=== PATIENT | male | born 1970 ===

== ENCOUNTER 2017-06-15 13:53 | Emergency (ER) | payer OTHER ==
[2017-06-15] MEDS ORDERED: Midazolam 1 MG/ML 2 ML SDV ONE ×2 (13:55→13:59)
[2017-06-15] MEDS ORDERED: Midazolam 5 MG/ML SDV IVPUSH ONE (13:55)
[2017-06-15] MEDS ORDERED: Midazolam 1 MG/ML 2 ML SDV IVPUSH ONE ×2 (13:56→14:02)
[2017-06-15] MEDS ORDERED: fentaNYL 100 MCG/2 ML SDV IVPUSH ONE (13:56)
[2017-06-15] MEDS ORDERED: fentaNYL 250 MCG/5 ML SDV ONE (14:00)
[2017-06-15] MEDS ORDERED: Midazolam 5 MG/ML 10 ML MDV ONE (14:00)
[2017-06-15] MEDS ORDERED: Midazolam 50 MG in Sodium Chloride 0.9% 40 ML IV SCH (14:08)
--- NOTE | 2017-06-15 14:13 | EDM.PDOC ---
ED HPI GENERAL MEDICAL PROBLEM - General Stated Complaint: AIR TRANSPORT Time Seen by Provider: 06/15/17 13:55 Source of Information: Reports: EMS History Limitations: Reports: Other - History of Present Illness INITIAL COMMENTS - FREE TEXT/NARRATIVE: History of present illness: []Patient was working on natural [employer] facility alone when apparently a pipe blew and hit him in the head. He was able to walk to his car and call 911 at 11:45. injection operator stated that he was in and out of consciousness. [facility] arrived on scene at 12:15 and was intubated. A motor ambulance was enroute but due to weather stopped here transfer to fixed wing. Patient has received rocuronium, ketamine and is on a fentanyl and Versed drip. Review of systems: As per history of present illness and below otherwise all systems reviewed and negative. Past medical history: As per history of present illness and as reviewed below otherwise noncontributory. Surgical history: As per history of present illness and as reviewed below otherwise noncontributory. Social history: No reported history of drug or alcohol abuse. Family history: As per history of present illness and as reviewed below otherwise noncontributory. Physical exam: General: Well developed, well nourished intubated HEENT: Hematoma right upper eyelid, pupils 3 mm bilaterally reactive, negative for conjunctival pallor or scleral icterus, mucous membranes moist, throat clear , neck supple, nontender, trachea midline. Lungs: Clear to auscultation, breath sounds equal bilaterally, chest nontender. Heart: S1S2, regular, negative for clicks, rubs, or JVD. Abdomen: Soft, nondistended, nontender. Negative for masses or hepatosplenomegaly. Negative for costovertebral tenderness. Pelvis: Stable nontender. Genitourinary: Deferred. Rectal: Deferred. Diagnostics: [] Therapeutics: []First said and fentanyl continued Impression: []Acute blunt head injury Plan: []Transfer to [place] Dr. Hernández made aware Definitive disposition and diagnosis as appropriate pending reevaluation and review of above. Review of Systems - Review of Systems Review Of Systems: Unable To Obtain ED EXAM, GENERAL - Physical Exam Exam: See Below (See history of present illness) Course - Orders/Labs/Meds Meds: Medications Discontinued Medications Generic Name Dose Route Start Last Admin Trade Name Freq PRN Reason Stop Dose Admin Fentanyl 50 mcg 06/15/17 13:56 Sublimaze IVPUSH 06/15/17 13:57 ONETIME ONE Midazolam HCl 5 mg 06/15/17 13:55 Versed 5 Mg/Ml IVPUSH 06/15/17 13:56 ONETIME ONE Midazolam HCl Confirm 06/15/17 13:59 Versed 1 Mg/Ml Administered 06/15/17 14:00 Dose 4 mg .ROUTE .STK-MED ONE Departure - Departure Time of Disposition: 14:13 Disposition: DC/Tfer to Acute Hospital 02 Condition: Critical Clinical Impression: Blunt head trauma Qualifiers: Encounter type: initial encounter Qualified Code(s): S09.8XXA - Other specified injuries of head, initial encounter - Discharge Information
== END 2017-06-15 14:47 ==
LOC: MW.ED 13:53
DX: S00.11XA Contusion of right eyelid and periocular area, initial encounter (principal); S09.90XA Unspecified injury of head, initial encounter; W22.8XXA Striking against or struck by other objects, initial encounter
CPT/HCPCS: 96374; 96375; 99285; G0390; J2250; J3010; J7030; J7050; 31500